=== PATIENT | female | born 1985 | race Caucasian/White ===

== ENCOUNTER 2016-06-21 10:21 | Emergency (ER) | payer MEDICAID ==
[2016-06-21 10:42] VITALS: BP 114/90; PULSE 92; RESP 18; TEMP 98.4; O2SAT 96
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
== END 2016-06-21 11:17 | disposition home or self-care (01) ==
LOC: CED 10:21
DX: S06.0X0A Concussion without loss of consciousness, initial encounter (principal); V48.4XXA Person boarding or alighting a car injured in noncollision transport accident, initial encounter
CPT/HCPCS: 99214-PO; G0463-PO

== ENCOUNTER → 2017-03-10 | Outpatient (CLI) | payer MEDICAID | LOC: FIMAGING 10:49 | PROVIDERS: ATTEND Advanced Practice Midwife | DX: Z34.02 Encounter for supervision of normal first pregnancy, second trimester (principal); Z3A.19 19 weeks gestation of pregnancy ==